=== PATIENT | male | born 1995 | race Caucasian/White ===

== ENCOUNTER 2017-12-08 18:52 | Emergency (ER) | payer OTHER ==
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
[2017-12-08 19:45] VITALS: BP 142/86
== END 2017-12-08 19:52 | disposition home or self-care (01) ==
LOC: ED 18:52
DX: T75.4XXA Electrocution, initial encounter (principal); W86.8XXA Exposure to other electric current, initial encounter; Y99.0 Civilian activity done for income or pay; R03.0 Elevated blood-pressure reading, without diagnosis of hypertension
CPT/HCPCS: 93005; 99282; 99283

== ENCOUNTER 2018-12-11 07:53 | Emergency (ER) | payer OTHER ==
[2018-12-11 08:05] VITALS: BP 141/77
--- NOTE | 2018-12-11 08:39 | ED Physician Documentation ---
PD HPI LOWER EXT INJURY - Stated complaint Stated Complaint: R ANKLE INJ - Chief complaint Chief Complaint: Ext Problem - History obtained from History obtained from: Patient - History of Present Illness PD HPI LOW EXT INJURY LOCATION: Right, Ankle Type of injury: Twist Where injury occurred: Other (playing soccer a few days ago) Timing - duration: Days (2-3 days) Timing - details: Gradual onset Pain level max: 6 Pain level now: 4 Improved by: Rest Worsened by: Moving, Palpating Associated symptoms: Swelling, Discolored (ecchymosis). No: Weakness, Numbness, Tingling Similar symptoms before: Has not had sx before Recently seen: Not recently seen Review of Systems Skin: denies: Rash Musculoskeletal: denies: Neck pain, Back pain Neurologic: denies: Headache PD PAST MEDICAL HISTORY - Past Medical History Past Medical History: No - Past Surgical History Past Surgical History: No - Present Medications Home Medications: Ambulatory Orders Medication Instructions Recorded Confirmed Loratadine [Claritin] 12/08/17 Ibuprofen [Motrin] 800 mg PO Q8H PRN #30 tablet 12/11/18 - Allergies Allergies/Adverse Reactions: Allergies Allergy/AdvReac Type Severity Reaction Status Date / Time No Known Drug Allergies Allergy Verified 12/11/18 08:05 - Social History Does the pt smoke?: No Smoking Status: Never smoker Does the pt drink ETOH?: Yes Does the pt have substance abuse?: No - Immunizations Immunizations are current?: Yes - POLST Patient has POLST: No PD ED PE NORMAL - Vitals Vital signs reviewed: Yes - General General: Alert and oriented X 3, No acute distress - HEENT HEENT: Moist mucous membranes - Neck Neck: Supple, no meningeal sign - Derm Derm: Warm and dry - Extremities Extremities: Other (Right ankle swelling and ecchymosis to the lateral aspect of the ankle. Tenderness over the lateral malleolus. No tenderness over the foot. Neurovascularly intact.) - Neuro Neuro: Alert and oriented X 3 Results - Vitals Vitals: Vital Signs - 24 hr 12/11/18 08:04 Temperature 36.7 C Heart Rate 50 L Respiratory 18 Rate Blood Pressure 141/77 H O2 Saturation 100 Oxygen O2 Source Room air - Rads (name of study) Right ankle x-ray Radiology: Prelim report reviewed, EMP read contemporaneously, See rad report (No acute bony abnormality) PD MEDICAL DECISION MAKING - ED course Complexity details: reviewed results, considered differential, d/w patient, d/w family ED course: No acute findings on x-ray. Placed in a gel splint for comfort. Declines crutches. Will follow up with his doctor for further care. Patient counseled regarding signs and symptoms for which I believe and urgent re-evaluation would be necessary. Patient with good understanding of and agreement to plan and is comfortable going home at this time This document was made in part using voice recognition software. While efforts are made to proofread this document, sound alike and grammatical errors may occur. Departure - Departure Disposition: Home, Self Care Clinical Impression: Right ankle sprain Qualifiers: Encounter type: initial encounter Involved ligament of ankle: unspecified ligament Qualified Code(s): S93.401A - Sprain of unspecified ligament of right ankle, initial encounter Condition: Good Instructions: ED Sprain Ankle W X Ray Follow-Up: ALLIE ESTRADA [Primary Care Provider] - Within 1 week Prescriptions: Ibuprofen [Motrin] 800 mg PO Q8H PRN #30 tablet PRN Reason: PAIN &/OR FEVER Comments: Your x-ray does not show any fracture today. You may bear weight as tolerated. Wear the splint for comfort. If you are still having symptoms in 10-14 days, you should be reevaluated by your doctor. Forms: Activity restrictions Discharge Date/Time: 12/11/18 09:26
--- NOTE | 2018-12-11 08:48 | XRAY Report ---
Reason: R ankle pain x 3 days Procedure Date: 12/11/2018 Accession Number: [id number] / [id number] Procedure: XR - Ankle 3 View RT CPT Code: FULL RESULT: EXAM: RIGHT ANKLE RADIOGRAPHY EXAM DATE: 12/11/2018 08:17 AM. CLINICAL HISTORY: R ankle pain x 3 days. COMPARISON: None. TECHNIQUE: 3 views. FINDINGS: Bones: Normal. No fractures or bone lesions. Joints: Normal. No effusion. No subluxations. The ankle mortise is normally aligned. Soft Tissues: Moderate right ankle soft tissue swelling noted. No radiopaque foreign bodies are noted. IMPRESSION: 1. No fracture or malalignment. 2. Moderate right ankle swelling noted. 3. If patient remains symptomatic, recommend follow up in 10-14 days. [facility]
[2018-12-11] MEDS ORDERED: IBUPROFEN 800 MG TABLET PO STA (09:04)
== END 2018-12-11 09:26 | disposition home or self-care (01) ==
LOC: ED 07:53
DX: S93.401A Sprain of unspecified ligament of right ankle, initial encounter (principal); Y93.66 Activity, soccer
CPT/HCPCS: 73610; 99283; A9270